=== PATIENT | female | born 1950 | race Caucasian/White ===

== ENCOUNTER 2017-07-17 10:23 | Outpatient (CLI) | payer MEDICARE, BC ==
--- NOTE | 2017-07-18 19:46 | Mammography Report ---
DIGITAL BILATERAL SCREENING MAMMOGRAM: 07/17/2017 COMPARISON STUDY: Mammogram of 04/29/2016. BREAST DENSITY: There are scattered fibroglandular densities. TECHNIQUE: Routine CC and MLO projections were obtained of the breasts. FINDINGS: Scattered fibroglandular tissue is present within the breasts. There are no dominant masses, suspicious microcalcifications, or secondary signs of malignancy. In comparison to the previous studies, there are no significant changes. ASSESSMENT: NO MAMMOGRAPHIC EVIDENCE OF MALIGNANCY. NO SIGNIFICANT INTERVAL CHANGES. BIRADS category 1 - negative. RECOMMENDATION: Screening mammography is recommended annually. STANDARD QUALIFYING STATEMENTS 1. This examination was reviewed with the aid of Computed-Aided Detection (CAD). 2. A negative or benign imaging report should not delay biopsy if clinically suspicious findings are present. Consider surgical consultation if warranted. More than 5% of cancers are not identified by imaging. 3. Dense breasts may obscure an underlying neoplasm. JOB #: [id number] EXT JOB #: [id number] RUPESH
== END 2017-07-17 10:24 | disposition home or self-care (01) ==
LOC: DI 10:23
PROVIDERS: ATTEND Internal Medicine
DX: Z12.31 Encounter for screening mammogram for malignant neoplasm of breast (principal)
CPT/HCPCS: 77067

== ENCOUNTER 2019-07-07 09:14 | Outpatient (CLI) | payer MEDICARE, BC ==
--- NOTE | 2019-07-07 09:48 | Mammography Report ---
Reason: ROUTINE MAMMO Procedure Date: 07/07/2019 Accession Number: [id number] / [id number] Procedure: MGN - Screening Mammo Dig Bilat CPT Code: Final Report FULL RESULT: EXAM: Screening Mammo Dig Bilat DATE: 07/07/2019 9:38 AM CLINICAL HISTORY: The patient is an asymptomatic 69-year-old female presenting for screening mammography. Nulliparous. No reported family history breast cancer. TECHNIQUE: (B) - Bilateral CC and MLO views were obtained. COMPARISON: 07/17/2017, 04/29/2016, 08/24/2014, 05/31/2013, 05/21/2012 PARENCHYMAL PATTERN: (A) - The breasts demonstrate scattered fibroglandular densities bilaterally. FINDINGS: The pattern of asymmetry is stable given positional variation. There are no suspicious masses, calcifications, or areas of distortion. IMPRESSION: Negative examination. BI-RADS category 1. RECOMMENDATION: (ANNUAL) - Recommend routine annual screening mammography. BI-RADS CATEGORY: (1) - Negative. STANDARD QUALIFYING STATEMENTS: 1. This examination was not reviewed with the aid of Computer-Aided Detection (CAD). 2. A negative or benign imaging report should not preclude biopsy if clinically suspicious findings are present. 3. Dense breasts may obscure an underlying neoplasm.
== END 2019-07-07 09:15 | disposition home or self-care (01) ==
LOC: DI.N 09:14
DX: Z12.31 Encounter for screening mammogram for malignant neoplasm of breast (principal)
CPT/HCPCS: 77067

== ENCOUNTER 2019-07-07 10:06 | Outpatient (CLI) | payer MEDICARE, BC ==
--- NOTE | 2019-07-07 16:41 | DEXA Report ---
Reason: DISORDER OF BONE Procedure Date: 07/07/2019 Accession Number: [id number] / [id number] Procedure: DEX - Dexa Spine and/or Hip CPT Code: Final Report FULL RESULT: EXAM: Dexa Spine and/or Hip DATE: 07/07/2019 1:16 PM CLINICAL HISTORY: The patient is a postmenopausal female on calcium supplementation. TECHNIQUE: Dual energy x-ray absorptiometry (DXA) was performed on a [employer] System. Regions measured are the AP Spine, femoral neck, and if needed forearm. COMPARISON: 04/29/2016 In accordance with the International Society for Clinical Densitometry (ISCD) guidelines, data from previous exams may be reanalyzed using current recommendations and techniques. This is done to allow a more accurate basis for comparison with the current study. FINDINGS: The data for the lumbar spine is as follows: BMD (g/cm/cm) T-SCORE Z-SCORE REGION L1 0.917 -1.8 -0.2 L2 1.039 -1.3 0.2 L3 1.097 -0.9 0.7 L4 1.026 -1.5 0.1 TOTAL 1.024 -1.3 0.3 NOTE: All evaluable vertebrae are used for classification The data for the hip is as follows: BMD (g/cm/cm) T-SCORE Z-SCORE REGION Neck 0.846 -1.4 0.3 TOTAL 0.941 -0.5 0.9 NOTE: The femoral neck or total proximal femur, whichever is lowest, is used for classification. DXA RESULTS SUMMARY: Spine SCAN DATE AGE BMD CHANGE VS CHANGE VS PREVIOUS PREVIOUS % 5/07/[age] 1[age]024 0.020 2.0 04/29[birth year][age] 1[age]004 * Denotes significant change at the 95% confidence level. Denotes dissimilar scan types or analysis methods. DXA RESULTS SUMMARY: Hip SCAN DATE AGE BMD CHANGE VS CHANGE VS PREVIOUS PREVIOUS % [birth year][age]07/2019 [age] 0.941 -0.044* -4.5* [birth year]29/2016 [age] 0[age]985 * Denotes significant change at the 95% confidence level. Denotes dissimilar scan types or analysis methods. IMPRESSION: 1. THE WHO CLASSIFICATION BASED ON THE INTERNATIONAL REFERENCE STANDARD IS OSTEOPENIA. THE FRACTURE RISK IS NOT INCREASED. 2. THERE HAS BEEN A STATISTICALLY SIGNIFICANT DECLINE IN BONE MARROW DENSITY IN THE LEFT HIP SINCE THE PRIOR STUDY. RECOMMENDATION: Patients with diagnosis of osteoporosis or osteopenia should have regular bone mineral density assessment. For those eligible for Medicare, routine testing is allowed once every 2 years. Testing frequency can be increased for patients who have rapidly progressing disease or for those who are receiving medical therapy to restore bone mass. COMMENT: World Health Organization (WHO) definitions for osteoporosis and osteopenia: NORMAL BMD: T-score at -1.0 or higher, fracture risk is low OSTEOPENIA BMD: T-score between -1.0 and -2.5, fracture risk is increased. OSTEOPOROSIS BMD: T-score at -2.5 or lower, fracture risk is high. National Osteoporosis Foundation recommends: 1. Obtain adequate dietary calcium (at least 1200 mg per day) and vitamin D (400-800 international units per day). 2. Participate, as appropriate, in regular weightbearing and muscle-strengthening exercise. 3. Avoid tobacco use and reduce alcohol and caffeine intake. 4. For more detailed information see the website at www.NOF.org.
== END 2019-07-07 10:07 | disposition home or self-care (01) ==
LOC: DI 10:06
PROVIDERS: ATTEND Internal Medicine
DX: M85.89 Other specified disorders of bone density and structure, multiple sites (principal)
CPT/HCPCS: 77080

== ENCOUNTER 2021-03-07 11:04 | Outpatient (CLI) | payer MEDICARE, BC ==
--- NOTE | 2021-03-08 12:13 | Mammography Report ---
BILATERAL DIGITAL SCREENING MAMMOGRAM 3D/2D: 03/07/2021 CLINICAL: Routine screening. Comparison is made to exams dated: 07/07/2019 mammogram, 07/17/2017 mammogram, and 04/29/2016 mammogra m - [facility]. The tissue of both breasts is heterogeneously dense. This may lowe r the sensitivity of mammography. No significant masses, calcifications, or other findings are seen in either breast. There has been no significant interval change. IMPRESSION: NEGATIVE There is no mammographic evidence of malignancy. A 1 year screening mammogram is recommended. This exam was interpreted at Station ID: [id number]. NOTE: For mammograms, a report in lay terms will be sent to the patient. Approximately 15% of breast malignancies will not be visualized mammographically. In the management of a palpable breast mass, a negative mammogram must not discourage biopsy of a clinically suspicious lesion. Electronically Signed By: Douglas Mandujano M.D. ddp/penrad:03/07/2021 12:23:46 ACR BI-RADS Category 1: Negative 3341F PARENCHYMAL PATTERN: (D) - The breast(s) demonstrate(s) heterogeneously dense fibroglandular parenchy ma. BI-RADS CATEGORY: (1) - 1 RECOMMENDATION: (ANNUAL) - Recommend routine annual screening mammography. 20220308 1 year screening LATERALITY: (B)
== END 2021-03-07 11:05 | disposition home or self-care (01) ==
LOC: DI 11:04
PROVIDERS: ATTEND Internal Medicine
DX: Z12.31 Encounter for screening mammogram for malignant neoplasm of breast (principal)

== ENCOUNTER 2021-06-19 10:44 | Outpatient (CLI) | payer MEDICARE, BC ==
--- NOTE | 2021-06-19 22:08 | DEXA Report ---
PROCEDURE: Dexa Spine and/or Hip INDICATIONS: POST MENOPAUSAL TECHNIQUE: Dual energy x-ray absorptiometry (DXA) was performed on a [employer] System. Regions measur ed are the AP Spine, femoral neck, and if needed forearm. COMPARISON: 07/07/2019 FINDINGS: Lumbar Spine: Bone Mineral Density 1.151 g/cm/cm,T score -0.2, normal Left Hip: Bone Mineral Density 0.958 g/cm/cm,T score -0.4, normal Left Femoral Neck: Bone Mineral Density 0.896 g/cm/cm, T score -1.0, normal Impression: Normal bone mineral density. Patients with diagnosis of osteoporosis or osteopenia should have regular bone mineral density assess ment. For those eligible for Medicare, routine testing is allowed once every 2 years. Testing frequ ency can be increased for patients who have rapidly progressing disease or for those who are receivin g medical therapy to restore bone mass. Reviewed by: Amarjit June MD on 06/19/2021 10:07 PM PST Approved by: Amarjit June MD on 06/19/2021 10:07 PM PST Station ID: [id number]
== END 2021-06-19 10:45 | disposition home or self-care (01) ==
LOC: DI 10:44
PROVIDERS: ATTEND Internal Medicine
DX: N95.9 Unspecified menopausal and perimenopausal disorder (principal)

== ENCOUNTER 2022-02-19 12:17 | Outpatient (CLI) | payer MEDICARE, BC ==
--- NOTE | 2022-02-19 14:12 | XRAY Report ---
PROCEDURE: Foot 3 View LT INDICATIONS: L FOOT PX TECHNIQUE: 3 views of the foot were acquired. COMPARISON: None FINDINGS: Bones: No fractures or dislocations. No suspicious bony lesions. Soft tissues: There is soft tissue swelling on the dorsal side of the foot overlying the metatarsals . No tibiotalar joint effusion. Achilles tendon appears normal. IMPRESSION: 1. Soft tissue swelling on the dorsal side of the metatarsals. 2. No fracture. Reviewed by: Terrance Scott on 02/19/2022 2:10 PM PDT Approved by: Terrance Scott on 02/19/2022 2:10 PM PDT Station ID: [id number]
== END 2022-02-19 12:18 | disposition home or self-care (01) ==
LOC: DI.N 12:17
PROVIDERS: ATTEND Internal Medicine
DX: M79.89 Other specified soft tissue disorders (principal)

== ENCOUNTER 2022-05-20 11:23 | Outpatient (CLI) | payer MEDICARE, BC ==
--- NOTE | 2022-05-21 11:34 | Mammography Report ---
BILATERAL DIGITAL SCREENING MAMMOGRAM 3D/2D: 05/20/2022 CLINICAL: Routine screening. Comparison is made to exams dated: 03/07/2021 mammogram, 07/07/2019 mammogram, 07/17/2017 mammogram, mammogram, 08/24/2014 mammogram, and 05/31/2013 mammogram - [facility]. There are scattered areas of fibroglandular density in both breasts (category b / 25%-50% glandular t issue). No significant masses, calcifications, or other findings are seen in either breast. There has been no significant interval change. IMPRESSION: NEGATIVE There is no mammographic evidence of malignancy. A 1 year screening mammogram is recommended. Based on the Tyrer Cuzick model (a risk assessment model) the patients lifetime risk is 3.1% and her 10 year risk is 2.5%. According to the ACR, ACS, and NCCN guidelines, an annual breast MRI exam alina g with mammogram is recommended if the patients lifetime risk is 20% or greater. This exam was interpreted at Station ID: [id number]. NOTE: For mammograms, a report in lay terms will be sent to the patient. Approximately 15% of breast malignancies will not be visualized mammographically. In the management of a palpable breast mass, a negative mammogram must not discourage biopsy of a clinically suspicious lesion. Electronically Signed By: Terrance Scott M.D. acr/penrad:05/20/2022 12:41:17 ACR BI-RADS Category 1: Negative 3341F PARENCHYMAL PATTERN: (A) - The breast(s) demonstrate(s) scattered fibroglandular densities. BI-RADS CATEGORY: (1) - 1 RECOMMENDATION: (ANNUAL) - Recommend routine annual screening mammography. [id number] 1 year screening LATERALITY: (B)
== END 2022-05-20 11:24 | disposition home or self-care (01) ==
LOC: DI.N 11:23
PROVIDERS: ATTEND Internal Medicine
DX: Z12.31 Encounter for screening mammogram for malignant neoplasm of breast (principal)